=== PATIENT | female | born 1995 | race Caucasian/White ===

== ENCOUNTER → 2017-05-03 | Outpatient (CLI) | payer OTHER ==
[2017-05-07 02:32] LABS: CHLAMYDIA TRACH RNA*** NOT DETECTED (NOT DETECTED); GC (NEIS GONORRHOEAE)RNA** NOT DETECTED (NOT DETECTED)
== END | disposition home or self-care (01) ==
LOC: C.LABSPEC 17:40
PROVIDERS: ATTEND Physician Assistant
DX: R10.2 Pelvic and perineal pain (principal)

== ENCOUNTER → 2017-07-25 | Outpatient (CLI) | payer OTHER | END | disposition home or self-care (01) | LOC: C.LABMFLN 15:31 | PROVIDERS: ATTEND Obstetrics & Gynecology | DX: Z34.90 Encounter for supervision of normal pregnancy, unspecified, unspecified trimester (principal) ==

== ENCOUNTER → 2017-09-11 | Outpatient (CLI) | payer OTHER ==
[2017-09-11 16:03] LABS: URINE APPEARANCE CLOUDY (CLEAR); URINE BILIRUBIN NEG (NEG); URINE COLOR DK YELLOW; URINE EPITHELIAL CELL AUTO >30 /lpf (0-5); URINE NITRITE NEG (NEG); URINE PH 6.5 (4.5-7.5); URINE SPECIFIC GRAVITY 1.022 (1.000-1.030); UROBILINOGEN NEG (NEG)
[2017-09-11 16:04] LABS: MANUAL MICROSCOPIC REQUIRED? NO; REVIEW REQ? NO
== END | disposition home or self-care (01) ==
LOC: C.LABSPEC 15:40
PROVIDERS: ATTEND Obstetrics & Gynecology
DX: Z34.02 Encounter for supervision of normal first pregnancy, second trimester (principal)

== ENCOUNTER → 2017-09-12 | Outpatient (CLI) | payer OTHER ==
[2017-09-12 16:09] LABS: BASO % 0.2 %; BASO ABS # 0.02 K/uL (0-0.2); COMPLETE YES; EOS % 1.1 %; HEMATOCRIT 37.2 % (37-47); IG% 0.6 %; LYMPH % 21.2 %; LYMPH ABS # 1.74 K/uL (1.2-3.4); MEAN CELL VOLUME 92.1 fL (80-100); MEAN CORPUSCULAR HEMOGLOBIN 30.9 pg (25-34); MEAN CORPUSCULAR HGB CONC 33.6 g/dl (32-36); MEAN PLATELET VOLUME 10.2 fL (7.4-10.4); MONO % 7.6 %; NEUT % 69.3 %; PLATELET COUNT 266 K/uL (130-400); RED BLOOD COUNT 4.04 M/uL (4.2-5.4); WHITE BLOOD COUNT 8.21 K/uL (4.8-10.8)
[2017-09-12 17:28] LABS: BENZODIAZEPINE, URINE NEG (NEG); COCAINE,URINE NEG (NEG); PHENCYCLIDINE, URINE NEG (NEG)
[2017-09-12 18:42] LABS: GTGD 50 Grams
[2017-09-16 07:21] LABS: CHLAMYDIA TRACH RNA*** NOT DETECTED (NOT DETECTED); GC (NEIS GONORRHOEAE)RNA** NOT DETECTED (NOT DETECTED)
== END | disposition home or self-care (01) ==
LOC: C.LAB1850 15:18
PROVIDERS: ATTEND Obstetrics & Gynecology
DX: Z34.02 Encounter for supervision of normal first pregnancy, second trimester (principal)

== ENCOUNTER → 2018-02-04 | Outpatient (CLI) | payer OTHER | END | disposition home or self-care (01) | LOC: C.LABSPEC 13:19 | PROVIDERS: ATTEND Obstetrics & Gynecology | DX: Z34.03 Encounter for supervision of normal first pregnancy, third trimester (principal) ==

== ENCOUNTER 2018-02-25 03:48 | Inpatient (IN) | payer OTHER ==
[~2018-02-25] VITALS: Ht 154.9 cm; Wt 63.0 kg
[2018-02-25] MEDS ORDERED: LACTATED RINGER'S 1000ML 1,000 ML IV SCH ×2 (04:06→09:39)
[2018-02-25] MEDS ORDERED: LACTATED RINGER'S 1000ML 1,000 ML IV PRN (04:06)
[2018-02-25] MEDS ORDERED: PRENTAB26 PO (04:22)
[2018-02-25 04:23] VITALS: Ht 154.9 cm; Wt 63.0 kg
[2018-02-25] MEDS ORDERED: BUPIVACAINE 0.25% 30 ML VIAL ONE (04:31)
[2018-02-25] MEDS ORDERED: EpHEDrine SULFATE INJ 50 MG/ML AMP ONE (04:32)
[2018-02-25] MEDS ORDERED: FENTANYL 2MCG/ML ROPIV 1.25MG/ML 100ML BAG ONE (04:32)
[2018-02-25] MEDS ORDERED: FENTANYL CITRATE INJ 50 MCG/1 ML 2 ML VIAL ONE (04:32)
[2018-02-25 04:41] LABS: HEMATOCRIT 37.5 % (37-47); HEMOGLOBIN 13.2 g/dL (12.0-16.0); MEAN CELL VOLUME 90.1 fL (80-100); MEAN CORPUSCULAR HEMOGLOBIN 31.7 pg (25-34); MEAN CORPUSCULAR HGB CONC 35.2 g/dl (32-36); MEAN PLATELET VOLUME 10.5 fL (7.4-10.4); PLATELET COUNT 273 K/uL (130-400); RED CELL DISTRIBUTION WIDTH CV 13.6 % (11.5-14.5); RED CELL DISTRIBUTION WIDTH SD 45.1 fL (36.4-46.3); WHITE BLOOD COUNT 11.03 K/uL (4.8-10.8)
[2018-02-25] MEDS ORDERED: LACTATED RINGER'S 1000ML 500 ML IV PRN (05:47)
[2018-02-25] MEDS ORDERED: NALOXONE HCL INJ 1 MG in SODIUM CHLORIDE 0.9% 1000ML 1,000 ML IV PRN (05:47)
[2018-02-25] MEDS ORDERED: FENTANYL 2MCG/ML ROPIV 1.25MG/ML 100ML BAG EPI PRN (06:00)
[2018-02-25] MEDS ORDERED: DiphenhydrAMINE HCL 50 MG/ML VIAL IV PRN (06:00)
[2018-02-25] MEDS ORDERED: EpHEDrine SULFATE INJ 50 MG/ML AMP IV PRN (06:00)
[2018-02-25] MEDS ORDERED: NALBUPHINE HCL INJ 10 MG/ML AMP IV PRN (06:00)
[2018-02-25] MEDS ORDERED: NALOXONE HCL INJ 0.4 MG/1 ML VIAL/CARP IV PRN (06:00)
[2018-02-25] MEDS ORDERED: OXYTOCIN 30 UNITS/500ML NSS IV ONE (09:29)
[2018-02-25] MEDS ORDERED: OXYCODONE/ACETAMINOPHEN 5-325 TAB PO PRN (09:45)
[2018-02-25] MEDS ORDERED: SUPERCREAM 0.870 % 15GM JAR EXT PRN (09:45)
[2018-02-25] MEDS ORDERED: LANOLIN OINT EXT PRN (09:45)
[2018-02-25] MEDS ORDERED: BENZOCAINE 20% AER SPR 82.5 GM CAN EXT PRN (09:45)
[2018-02-25] MEDS ORDERED: HYDROCORTISONE ACETATE 25 MG SUPP PR PRN (09:45)
[2018-02-25] MEDS ORDERED: ACETAMINOPHEN 325 MG TAB PO PRN (09:45)
[2018-02-25] MEDS ORDERED: OXYTOCIN 30 UNITS/500ML NSS IV PRN (09:45)
[2018-02-25] MEDS ORDERED: IBUPROFEN 600 MG TAB PO PRN (09:45)
--- NOTE | 2018-02-25 10:23 | DELIVERY SUMMARY ---
DATE OF OPERATION: 02/25/2018 VAGINAL DELIVERY NOTE PREOPERATIVE DIAGNOSES: 1. Mc intrauterine at 39 weeks. 2. Group B strep negative. 3. Normal labor and delivery. POSTOPERATIVE DIAGNOSES: 1. Mc intrauterine at 39 weeks. 2. Group B strep negative. 3. Normal labor and delivery. PROCEDURE: Spontaneous vaginal delivery. SURGEON: Inge Salas MD RECORD PRESSMAN: None. ESTIMATED BLOOD LOSS: 250 mL. FINDINGS: Placenta spontaneous and intact with a 3-vessel cord. COMPLICATIONS: None. DISPOSITION: Stable to labor and delivery. DESCRIPTION OF PROCEDURE: Michelle is a 22-year-old 1, para 0, who presented at 39 weeks gestational age. She was admitted by my partner, Dr. Boyer, and managed for a spontaneous labor. Shortly after I accepted care of the patient on the morning of 02/25/2018, she reached complete dilation. I was notified of this by her nurse and the second stage of labor was then began. She pushed very well and I was soon called to the bed for delivery. She was prepped and draped. The head began to crown and through the next several pushing efforts, Michelle was able to deliver the head in an occiput anterior position. The head restituted with the occiput towards the patient's left and with another final push, she was able to deliver the shoulders with no difficulty, whatsoever. A vigorous male with a short cord was placed on the maternal abdomen while the cord was doubly clamped and cut by a family member of the patient. The infant was noted to have some wet lung sounds as he was making crying attempts, therefore he was taken to the warmer for suction and resuscitation. The placenta delivered spontaneously and was intact with a 3-vessel cord. There were no lacerations at the cervix, vagina, or perineum. The fundus was firm, lochia was minimal, and at the present time, mother and infant are both in good condition having tolerated delivery well. I attest to the content of the Intraoperative Record and any orders documented therein. Any exception s are noted below.
--- NOTE | 2018-02-25 11:04 | Anesthesia Procedure Note ---
Anesthesia Epidural Removal Nt Date & Time February 25, 2018 at 11:04 Vital Signs Pain Intensity: 0.0 Notes Mental Status: alert / awake / arousable, participated in evaluation Nausea / Vomiting: adequately controlled Pain: adequately controlled Airway Patency, RR, SpO2: stable & adequate BP & HR: stable & adequate Hydration State: stable & adequate Neuraxial Anesthesia: was administered Anesthetic Complications: no major complications apparent, pt satisfied with anesthetic care Epidural: removed without complications, with tip intact
[2018-02-25 13:55] VITALS: BP 112/71; PULSE 66; TEMP 37.3; O2SAT 95
[2018-02-25 15:15] VITALS: BP 114/78; PULSE 56; TEMP 36.7; O2SAT 98
[2018-02-25 19:20] VITALS: BP 129/86; PULSE 60; TEMP 36.9; O2SAT 98
[2018-02-25] MEDS: DOCUSATE SODIUM 100 MG CAP PO SCH (19:58)
[2018-02-25 23:50] VITALS: BP 104/63; PULSE 72; TEMP 36.8
[2018-02-26 04:20] VITALS: BP 107/64; PULSE 64; TEMP 36.7
--- NOTE | 2018-02-26 06:12 | Progress Note ---
Subjective February 26, 2018. Subjective conversation w/ patient Ambulation: ambulating normally Voiding: no voiding problems Diet Tolerance: Regular Diet Lochia: Moderate Feeding Type: Breast Feeding (supplementing with formula as her milk has not come in yet) Pain: 1/10 low back pain. Improved w/heating pad Review of Systems Constitutional: No fever, No chills Respiratory: No shortness of breath Cardiac: No chest pain Abdomen: No nausea, No vomiting Objective Vital Signs Date Time Temp Pulse Resp B/P (MAP) Pulse Ox O2 Delivery O2 Flow Rate FiO2 02/26/18 04:20 36.7 64 18 107/64 (78) Room Air 02/25/18 23:50 36.8 72 18 104/63 (77) Room Air 02/25/18 23:50 Room Air 02/25/18 19:20 36.9 60 20 129/86 (100) 98 Room Air 02/25/18 15:15 98 Room Air 02/25/18 15:15 36.7 56 16 114/78 (90) 98 Room Air 02/25/18 13:55 37.3 66 18 112/71 (85) 95 Room Air 02/25/18 13:55 95 Room Air Physical Exam General Appearance: WELL-APPEARING, WD/WN, NO APPARENT DISTRESS Respiratory/Chest: lungs clear, normal breath sounds Cardiovascular: regular rate, rhythm Abdomen: soft Fundus: Firm, Non-Tender, Relation to Umbilicus (1 below) Extremities: no pedal edema, no calf tenderness Laboratory Results Last 24 Hours Test 02/26/18 04:44 Assessment and Plan Post- Day#: 1 Continue Routine Care: 22F s/p NVD day 1 - AB+, Rubella Immune, GBS -ve - pt doing well clinically - Vital signs reviewed and WNL - routine care - encourage ambulation, monitor pain - continue to encourage breast feeding Resident Physician Supervision Note: I interviewed and examined the patient. Discussed with Dr. Girard and agree with findings and plan as documented in the note. Any exceptions or clarifications are listed here: [None] Documented By: Inge Salas Resident Tracking Resident Involvement: Resident Care Provided Care Provided: OB Delivery
--- NOTE | 2018-02-26 06:16 | Discharge Instructions ---
Discharge Instructions Date of Service February 26, 2018. Admission Reason for Admission: LABOR Discharge Discharge Diagnosis / Problem: Vaginal Delivery Discharge Goals Goal(s): Routine recovery after delivery Medications Continue Dispensed Medications: supercream, dermaplast, tucks, lansinoh Activity Recommendations Activity Limitations: per Instructions/Follow-up section . Instructions / Follow-Up Instructions / Follow-Up ACTIVITY RECOMMENDATIONS: * Gradual return to full activity over the next 2-3 weeks. * No lifting - nothing heavier than baby over the next 2-3 weeks. * Do not engage in vigorous exercise, sexual activity or sports until cleared by your physician. * Do not drive or operate any motorized equipment until cleared by your physician. * You may shower/bathe daily. MEDICATIONS: For discomfort or pain, you may use Acetaminophen (Tylenol), Ibuprofen (Advil), or Naproxen (Aleve) following the package directions. For constipation you may use Colace following the package directions. BREAST CARE: If you are not breast feeding: * Wear a supportive bra 24 hours a day for one to two weeks. * Avoid stimulating your breasts and nipples as much as possible during the first few weeks after delivery. * When taking a shower, have the warm water hit your back, not breasts. * When your breasts feel full, apply ice packs. Usually three to four times a day helps ease the discomfort. * Take a mild pain medication (Tylenol / Motrin) when you are uncomfortable. If breast feeding: * Use breast milk to lubricate nipples. Lansinoh cream may be used for sore nipples. You do not need to remove cream prior to breast feeding. If using a different brand of cream, check the label for directions regarding removal of cream prior to nursing. * Wear a supportive bra. * If having problems with breasts or breast feeding, call a [facility] consultant or your health care provider. EPISIOTOMY CARE: After delivery, if you have an episiotomy (stitches), the following steps will ease discomfort and aid healing. * For the first 24 hours after delivery, place ice packs next to your episiotomy to help reduce swelling. * After the first 24 hour-period, sitz baths, either portable or in the tub, are suggested. A shower with a shower arm sprayed over the episiotomy may be comforting. * Andria care should be done after each voiding and bowel movement. Squirt warm water from a plastic bottle over the perineum (region of the body between the anus and urinary opening) and pat dry. * Use Dermoplast to ease discomfort. Shake container. [place] directly over the episiotomy. Place a Tucks on a clean sanitary pad next to your episiotomy. SPECIAL CARE INSTRUCTIONS: When you are discharged from the hospital, it is important for you to follow the instructions listed below: * During the first week at home, you should be able to care for yourself and your baby. In addition, the usual light household activities are encouraged. * Limit your activities to the way you feel. Do not try to clean the house or move furniture. Be sensible. * If you actively engage in sports and have done so up until the time of your delivery, you may resume these activities as soon as you feel able. This may take up to one month or even longer. Use good judgment. * Continue to take your vitamins for at least six weeks after the of your baby. * Your diet need not be limited unless you were on a special diet before your delivery. Breast-feeding mothers need around 2500 calories per day and at least 64-80 ounces of fluid per day (8 to 10 glasses). * You should eat foods from the four major food groups. Crash diets or fad diets are to be avoided. Eating lean meats, fresh fruits and vegetables, low-fat dairy products, high fiber foods and a regular exercise program, will help you get back to your pre- weight without putting your health at risk. * Constipation is sometimes a problem after delivery. Take a mild laxative as needed. If breast feeding, Milk of Magnesia is acceptable to use. You may use a suppository or Fleets enema if no episiotomy. * A daily shower or tub bath is suggested. Be sure to thoroughly and gently dry the perineum. * A bloody vaginal discharge will usually continue until around four weeks post . A small amount of bleeding may continue for as long as six weeks. Vaginal discharge changes from the bright red bleeding after delivery to pink then brownish and finally yellowish-pink before becoming white and disappearing. * Bleeding may increase with activity. Your first period may come in 4-8 weeks. If you are breast feeding, your period may be delayed even longer. * [place] (sex) can begin whenever both you and your partner feel comfortable and do not have any form of genital infection. It is recommended that you wait at least six weeks for internal and external healing to occur. If you have questions, please talk to your health care practitioner. A condom should be used to prevent infection and . * Foreplay, gentle intercourse and lubrication is very important the first several times to prevent pain. A water-based lubricant such as K-Y jelly or Astroglide may be used. * If you have RH negative blood and your baby is RH positive, you will receive RHOGAM by injection prior to discharge. The nurse will give you a card to keep with you that has the date and place that you received RHOGAM after delivery. * During your care, you had a Rubella screen done to check for the presence of rubella antibodies in your blood. If your test was negative, you will receive a Rubella vaccine prior to discharge. This vaccine may cause a fever, soreness at the injection site and flu-like symptoms. If these symptoms persist, notify your health care practitioner. is not advised for one month after a Rubella vaccine. * Verbalizes understanding of car seat law as reviewed with patient nursing. * Car Seat hand-out given and reviewed with patient by nursing. * Shaken baby information reviewed with patient by nursing. Call you doctor if: * Heavy bleeding (saturating several pads an hour) or passing clots the size of your fist. * A fever >101 degrees F (38.3 degrees C) on two occasions four hours apart and /or chills. * Unusual pain in the pelvic or vaginal areas. * "Baby Blues" lasting longer than two weeks. If you have any questions or concerns, call your health care practitioner at . FOLLOW UP VISIT: * Please call the office at to schedule a 6 week examination. It is important you keep this appointment. It is important for you to make arrangements for either yearly or twice yearly check-ups thereafter. Current Hospital Diet Patient's current hospital diet: Regular OB Diet Discharge Diet Recommended Diet: Regular Diet Pending Studies Studies pending at discharge: no Medical Emergencies . Who to Call and When: Medical Emergencies: If at any time you feel your situation is an emergency, please call [phone] immediately. . Non-Emergent Contact Non-Emergency issues call your: Primary Care Provider . . "Provider Documentation" section prepared by Maggie Vuong. .
[2018-02-26 06:28] LABS: HEMATOCRIT 36.4 % (37-47); HEMOGLOBIN 12.4 g/dL (12.0-16.0)
[2018-02-26 07:04] VITALS: BP 107/70; PULSE 52; TEMP 36.7
[2018-02-26] MEDS: PRENATAL VITAMIN TAB PO SCH (08:28)
[2018-02-26] MEDS: DOCUSATE SODIUM 100 MG CAP PO SCH ×2 (08:28→19:48)
[2018-02-26 11:15] VITALS: BP 95/57; PULSE 57; TEMP 36.4; O2SAT 98
[2018-02-26 15:40] VITALS: BP 103/69; PULSE 59; TEMP 36.6; O2SAT 97
[2018-02-27 00:25] VITALS: BP 107/59; PULSE 48; TEMP 36.8
--- NOTE | 2018-02-27 06:38 | Progress Note ---
Subjective February 27, 2018. Subjective conversation w/ patient Ambulation: ambulating normally Voiding: no voiding problems Diet Tolerance: Regular Diet Lochia: Small Feeding Type: Breast Feeding (pumping and feeding in a bottle) Pain: 1/10 low back pain w/certain positions Review of Systems Constitutional: No fever, No chills Respiratory: No shortness of breath Cardiac: No chest pain Abdomen: No nausea, No vomiting Objective Vital Signs Date Time Temp Pulse Resp B/P (MAP) Pulse Ox O2 Delivery O2 Flow Rate FiO2 02/27/18 00:25 Room Air 02/27/18 00:25 36.8 48 16 107/59 (75) Room Air 02/26/18 15:40 36.6 59 16 103/69 (80) 97 Room Air 02/26/18 15:40 97 Room Air 02/26/18 11:15 36.4 57 18 95/57 (70) 98 Room Air 02/26/18 08:15 Room Air 02/26/18 07:04 36.7 52 19 107/70 (82) Physical Exam General Appearance: WELL-APPEARING, WD/WN, NO APPARENT DISTRESS Respiratory/Chest: lungs clear, normal breath sounds Cardiovascular: regular rate, rhythm Abdomen: soft Fundus: Firm, Non-Tender, Relation to Umbilicus (2 below) Extremities: no pedal edema, no calf tenderness Assessment and Plan Post- Day#: 2 Continue Routine Care: 22F s/p NVD day 2 - AB+, Rubella Immune, GBS -ve - pt doing well clinically - routine care - encourage ambulation, monitor pain - pt ready for d/c today and will be counselled on d/c instructions Resident Physician Supervision Note: I was present with Dr. Vuong during the history and exam. I discussed the case with the resident and agree with the findings and plan as documented in the note. Any exceptions or clarifications are listed here: PPD2 doing well. Discharge to home. Documented By: Ambar Soriano Resident Tracking Resident Involvement: Resident Care Provided Care Provided: OB Delivery
[2018-02-27 07:30] VITALS: BP 113/65; PULSE 73; TEMP 36.7
[2018-02-27] MEDS ORDERED: MISC-836 (07:30)
[2018-02-27] MEDS: DOCUSATE SODIUM 100 MG CAP PO SCH (08:50)
[2018-02-27] MEDS: PRENATAL VITAMIN TAB PO SCH (08:51)
[2018-02-27 11:00] VITALS: BP_DIAS 65; PULSE 73; TEMP 36.7
== END 2018-02-27 11:00 | disposition home or self-care (01) | DRG 775 ==
LOC: C.OPB 03:48 → C.LD 03:48 → C.OPB 04:08 → C.LD 04:08 → C.OBG 13:10
PROVIDERS: ADMIT Obstetrics & Gynecology; ATTEND Obstetrics & Gynecology
PROC: 10E0XZZ Delivery of Products of Conception, External Approach (ICD-10-PCS; principal; 2018-02-25)
DX: O69.3XX0 Labor and delivery complicated by short cord, not applicable or unspecified (principal); O76 Abnormality in fetal heart rate and rhythm complicating labor and delivery; Z3A.39 39 weeks gestation of pregnancy; Z37.0 Single live birth

== ENCOUNTER 2022-12-03 07:50 | Inpatient (IN) ==
[2022-12-03] MEDS ORDERED: LIDOCAINE 1% LOCAL 20 ML VIAL INFIL PRN (08:11)
[2022-12-03] MEDS ORDERED: OXYTOCIN 30 UNITS/500 ML BAG IV PRN ×3 (08:11→16:57)
[2022-12-03] MEDS ORDERED: LACTATED RINGER'S 1,000 ML IV PRN (08:11)
--- NOTE | 2022-12-03 08:30 | History & Physical Report ---
Date of Service December 03, 2022 Assessment & Plan (1) Encounter for induction of labor: Plan - Patient admitted to labor and delivery for initiation of medical induction of labor - No Turner bulb placed, ЮЛИЯ /-2 on 11/29/22 - No evidence of contractions, thus oxytocin augmentation of labor will be started per protocol - Once contractions are progressing, will consider ROM - Will anticipate epidural as contractions arise - Labs pending - Nephrostomy tube intact on right, no erythema or purulence, removal schedule 12/13/22 Admission and Anticipated Discharge Date Admission Date: December 03, 2022 History of Present Illness Chief Complaint: Induction of Labor Primary Care Provider: NO PCP Subjective: Amita is a 26 year old female currently 39 5/7 with ANGEL 12/07/22 determined by LMP who presents to L&D for induction of labor. Complications: nephrolithiasis w/ nephrostomy placement, hx of scoliosis Reason for Induction/: Elective (planned prior to nephrostomy removal 12/13/22) Movement: Yes Fluid Loss/ROM: No Bloody show/discharge: Small bloody show with mucous discharge External FHT and uterine monitor: Category 1, tracing reactive, good FHT variability (accelerations w/o decelerations) Last OB appointment: 11/29, regular care [facility] Hx: No abnormal paps, no hx of STIs Social Hx: Current daily cigarette use, 1 PPD Labs: Blood Type: AB+ Antibody Screen: Negative Hg/Hct (today): Pending WBC/Plt (today): Pending Rubella: Immune RPR: Non-reactive Gonorrhea: Negative Chlamydia: Negative HIV: Negative HbSAg: Negative GBS: Negative Cff-DNA: Low risk CF-SMA: Low risk ROS: - Denies fever, chills, sweats - Denies dyspnea or pleuritic pain - Denies chest pain, palpitations, or pressure - Denies breast pain - Denies dysuria - Denies headache or visual changes Allergies Allergy/AdvReac Type Severity Reaction Status Date / Time No Known Allergies Allergy Verified 11/29/22 12:18 Home Medications Medication Instructions Recorded Confirmed Type prenat.vits,ankit,peo-ynce-ydsbr 1 tab PO DAILY 04/24/22 12/03/22 History breast pump #1 ea 11/23/22 11/29/22 Rx Patient History Medical History (Updated 12/03/22 @ 08:27 by Eduardo Morales DO) History of ovarian cyst History of varicella vaccination Kidney stones Nephrostomy tube placed 09/2022. Surgical History No pertinent past surgical history Family History Grandmother (Paternal) Breast cancer Other Colorectal cancer Social History (Updated 12/03/22 @ 08:19 by Marilyn Reis, MAURO) Smoking Status: Current every day smoker Tobacco Type: Cigarettes packs per day: 1; Cigarettes Per Day: 20; Hx Alcohol Use: No Hx Substance Use: No Preferred Language: Thai Communication Ability: Effective Licensed Loan Officer Assistant Required: No Beliefs That Will Affect Care: None marital status: marital status details: Adonis Watson (29) [phone] Current Living Situation: Spouse and Family Current Living Situation Comment: lives with spouse, and son, cats, dogs, spouse to change litter. current occupational status: employed current occupation: [employer] Other Information That Helps Us Care for You: No Feels Safe at Home: Yes Safety Concerns: Feels Safe At This Time Dental Care, Regularly: Yes Assistive Devices: None Physical Exam Physical Exam: General: Alert, oriented. No acute distress. Cardiac: Regular rate and rhythm, no murmurs/rubs/gallops. Respiratory: Clear to auscultation bilaterally a/p, no wheezes/rales/rhonchi. No increased work of breathing. Symmetrical chest rise. No respiratory distress. Abdomen: Gravid; reactive FHTs; Position: Vertex by Damien Back: Nephrostomy tube in place, no erythema or purulence at site Pelvic: ЮЛИЯ pending per Dr. Caballero Lower Extremities: No lower extremity edema or swelling. No deep calf pain. Catalina's negative bilaterally. Results & Data ([facility]) Vital Signs (Past 12 Hours) Vital Signs Pulse BP 12/03/22 08:13 74 104/58 L Code Status & VTE Plan VTE Prophylaxis Plan VTE Prophylaxis will be ordered: Yes Supervising Physician Co-Signing Physician Notes Resident Physician Supervision Note: I interviewed and examined the patient. Discussed with Dr. Morales and agree with findings and plan as documented in the note. Any exceptions or clarifications are listed here: 26 yo at 39 3/7 wga presents for eIOL. +FM; denies ctx, LOF, VB. VSS, Fetus cat 1. SVE /-2. Will start pit, epidural PRN, GBS neg Documented By: Rosi Caballero MD Resident Activity Tracking Resident Involvement: Resident Care Provided Care Provided: OB Delivery
[2022-12-03 08:49] LABS: Hematocrit (blood only) 31.6 % (37.0-47.0); Mean Corpuscular Hemoglobin 30.8 pg (25.0-34.0); Mean Corpuscular Hgb Conc 34.8 g/dL (32.0-36.0); Mean Corpuscular Volume 88.5 fL (80.0-100.0); Mean Platelet Volume 11.1 fL (9.4-12.4); Platelet Count 282 K/uL (130-400); RDW Coefficient of Variation 13.9 % (11.5-14.5); RDW Standard Deviation 44.9 fL (36.4-46.3); Red Blood Count 3.57 M/uL (4.20-5.40); White Blood Count 8.86 K/ul (4.8-10.8)
[2022-12-03] MEDS ORDERED: SODIUM CHLORIDE 0.9% INJ 10 ML VIAL ONE (15:06)
[2022-12-03] MEDS ORDERED: fentaNYL citrate 100 MCG/2 ML VIAL ONE (15:06)
[2022-12-03] MEDS ORDERED: ePHEDrine sulfate 50 MG/ML AMP ONE (15:06)
[2022-12-03] MEDS ORDERED: BUPIVACAINE 0.25% 30 ML VIAL ONE (15:06)
[2022-12-03] MEDS ORDERED: LIDOCAINE 2%/EPINEPHRINE 1:200,000 20 ML SDV ONE (15:07)
[2022-12-03] MEDS ORDERED: fentaNYL 2MCG/ML ROPIVACAINE 1.25MG/ML 100 ML BAG EPI ONE (15:07)
--- NOTE | 2022-12-03 15:08 | Labor Progress Brief Note ---
Date of Service December 03, 2022 Subjective pain w/ ctx about 5/10 Assessment & Plan (1) Encounter for induction of labor: Plan: 26 yo at 39/ 37 wga admitted for eIOL VSS Fetus cat 1 Labor - pit at 8, now s/p arom GBS neg desires epidural Admission and Anticipated Discharge Date Admission Date: December 03, 2022 Physical Exam Genitourinary: Manual OB Exam: + cervical dilation 4 cm, + cervical effacement 90%, + station -2 and + amniotic fluid (clear) OB Exam Monitor Tracing: + external FHT monitor used, + external uterine monitor used (q3) and + category I (125-130/mod/+accel/-decel) Results & Data ([facility]) Vital Signs (Past 12 Hours) Vital Signs Temp Pulse Resp BP Pulse Ox 12/03/22 08:21 97.7 F 20 12/03/22 15:04 72 100 12/03/22 14:34 75 20 107/68 12/03/22 13:38 75 18 95/62 L 12/03/22 12:30 66 18 96/58 L 12/03/22 11:33 97.5 F L 64 18 96/63 L 12/03/22 10:40 74 18 104/56 L 12/03/22 09:45 66 20 103/62 12/03/22 08:13 74 104/58 L Coding Level of Care Code None Diagnoses Encounter for induction of labor Z34.90
--- NOTE | 2022-12-03 15:39 | Anesthesiology Consultation ---
Date of Service December 03, 2022 Assessment & Plan Chart Review Chart Review: Acceptable Risk for Labor Epidural ASA ASA2 Proposed Anesthesia Anesthesia Type: Labor Epidural History Height/Weight Height: 5 ft Weight: 61.689 kg Allergies Allergy/AdvReac Type Severity Reaction Status Date / Time No Known Allergies Allergy Verified 11/29/22 12:18 Medications Home Medications Medication Instructions Recorded Confirmed Last Taken prenat.vits,ankit,ykb-fxoz-lezju 1 tab PO DAILY 04/24/22 12/03/22 11/27/22 breast pump #1 ea 11/23/22 11/29/22 Unknown Active Medications Generic Name Dose Route Start Last Admin Trade Name Freq PRN Reason Stop Dose Admin Lactated Ringer's 1,000 mls @ 125 mls/hr 12/03/22 08:11 12/03/22 09:42 Lr IV 12/05/22 08:10 125 mls/hr .Q8H PRN Administration L&D Protocol Protocol Oxytocin 30 units in 500 mls @ 8 mls/hr 12/03/22 08:11 12/03/22 14:50 Pitocin IV 12/05/22 08:10 0.48 units/hr .Q24H PRN 8 mls/hr Labor Induction/Augmentation Titration Protocol 0.48 UNITS/HR NPO Date Last Intake of Fluids: 12/03/22 Time Last Intake of Fluids: 15:00 Date Last Intake of Solids: 12/03/22 Time Last Intake of Solids: 06:00 Past Medical History Medical History (Updated 12/03/22 @ 11:28 by Marilyn Reis, MAURO) Anemia History of ovarian cyst History of varicella vaccination Kidney stones Nephrostomy tube placed 09/2022 - Remains intact. Surgery scheduled for removal on 12/13/2022. Scoliosis Exercise / Class Metabolic Activity 1 > 8 Run/Swim/Ski/Tennis Past Family History Family History Grandmother (Paternal) Breast cancer Other Colorectal cancer Past Surgical History Surgical History No pertinent past surgical history Past Anesthesia History No Hx of Anesthesia Complications History of PONV No Hx of PONV Social History Smoking Status: Current every day smoker tobacco type: cigarettes Smoking cigarettes per day: 20 Hx Alcohol Use: No Hx Substance Use: No Physical Exam Vital Signs Last Vital Signs Temp 36.4 C L 12/03/22 11:33 Pulse 70 12/03/22 15:32 Resp 20 12/03/22 14:34 BP 110/56 L 12/03/22 15:32 Pulse Ox 100 12/03/22 15:29 Constitutional screaming in pain ENMT Thyromental Distance: > or= 3.5 Finger Breadths Mallampati Class: I Neck normal visual inspection Respiratory Auscultation: lungs clear to auscultation bilaterally Cardiovascular Rate/Rhythm: regular rate and regular rhythm Psychiatric Orientation: alert and oriented x 3 Testing Laboratory Results 12/03/22 08:27
[2022-12-03] MEDS ORDERED: diphenhydrAMINE 50 MG/ML VIAL IV PRN (15:40)
[2022-12-03] MEDS ORDERED: ONDANSETRON INJ 2 MG/ML 2 ML VIAL IV PRN (15:40)
[2022-12-03] MEDS ORDERED: NALOXONE HCL 0.4 MG/1 ML VIAL/CARP IV PRN (15:40)
[2022-12-03] MEDS ORDERED: NALBUPHINE HCL INJ 10 MG/ML AMP IV PRN (15:40)
[2022-12-03] MEDS ORDERED: PROMETHAZINE HCL 25 MG in SODIUM CHLORIDE 0.9% 50 ML IV PRN (15:40)
[2022-12-03] MEDS ORDERED: ePHEDrine sulfate 50 MG/ML AMP IV PRN (15:40)
[2022-12-03] MEDS ORDERED: NALOXONE HCL 1 MG in SODIUM CHLORIDE 0.9% 1000ML 1,000 ML IV PRN (15:40)
[2022-12-03] MEDS ORDERED: fentaNYL 2MCG/ML ROPIVACAINE 1.25MG/ML 100 ML BAG EPI PRN (15:40)
--- NOTE | 2022-12-03 16:48 | Delivery Summary ---
Vaginal Delivery Summary Date of Service December 03, 2022 Vaginal Delivery Summary [facility] PREOPERATIVE DIAGNOSIS: 1. Single intrauterine at 39 3/7 wga 2. Elective induction of labor POSTOPERATIVE DIAGNOSIS: 1. Single intrauterine at 39 3/7 wga 2. Elective induction of labor 3. Delivered PROCEDURE: 1. Normal spontaneous vaginal delivery. SURGEON: Rosi Caballero MD ANESTHESIA: Epidural. ESTIMATED BLOOD LOSS: 300 mL FLUIDS: Continuous LR. URINE OUTPUT: None. COMPLICATIONS: None. CONDITION: Stable. INDICATIONS: 26 yo at 39 3/7 wga presented for elective IOL today due to coordination of care as she is having nephrostomy tube surgery next week. She was 3cm on arrival and started on pitocin. She underwent AROM and received an epidural for pain control. She rapidly progressed to complete and desired to push. FINDINGS: A viable female infant, weight pending with Apgars of 8 and 9 at 1 and 5 minutes respectively. SPECIMEN: Cord blood OPERATIVE REPORT: The patient progressed to 10 cm, 100% effaced and +2 station, pushed over intact perineum with anesthesia to deliver a viable female , weight and Apgars as above. Head of delivered in AGUSTÍN position. No nuchal cord was present. Body and shoulders were delivered without difficulty. was delivered to maternal abdomen and nursing staff. Delayed cord clamping was performed for 60 seconds. Cord was clamped and cut. Cord blood was obtained. Placenta delivered spontaneously intact with 3-vessel cord. IV oxytocin and fundal massage were given for excellent hemostasis. Vagina, cervix, perineum, and placenta were inspected. Hemostatic labial abrasions were noted bilaterally and not needed to be repaired. Sponge and needle counts correct x2. No sponges were left behind. Mother and stable in immediate period. [facility] [place] Vaginal Delivery Charge Vaginal Delivery Codes: 86474 global code for the antepartum, delivery, and post- Delivery Type Details: [facility]
[2022-12-03] MEDS ORDERED: bisacodyL 10 MG SUPP PR PRN (16:57)
[2022-12-03] MEDS ORDERED: DIPHTHERIA/TETANUS/PERTUSSIS 0.5mL SYR/VIAL (Age 7+yrs) IM ONE (16:57)
[2022-12-03] MEDS ORDERED: BENZOCAINE 20% AER SPR 82.5 GM CAN EXT PRN (16:57)
[2022-12-03] MEDS ORDERED: HYDROCORTISONE ACETATE 25 MG SUPP PR PRN (16:57)
[2022-12-03] MEDS ORDERED: IBUPROFEN 600 MG TAB PO PRN (16:57)
[2022-12-03] MEDS ORDERED: ACETAMINOPHEN 325 MG TAB PO PRN (16:57)
--- NOTE | 2022-12-03 17:09 | Anesthesia Procedure Note ---
Date of Service December 03, 2022 Anesthesia Post Epidural Note Vital Signs Vital Signs: Temp Pulse Resp BP Pulse Ox 36.4 C L 54 L 20 95/56 L 99 12/03/22 11:33 12/03/22 17:00 12/03/22 14:34 12/03/22 17:00 12/03/22 16:45 Notes Mental Status: alert / awake / arousable and participated in evaluation Nausea / Vomiting: adequately controlled Pain: adequately controlled Airway Patency, RR, SpO2: stable & adequate BP & HR: stable & adequate Hydration State: stable & adequate Neuraxial Anesthesia: was administered and sensory block is resolving Anesthetic Complications: no major complications apparent and Pt Satisfied with anesthetic care Epidural: Removed without complications and With tip intact
[2022-12-03] MEDS: DOCUSATE SODIUM 100 MG CAP PO SCH (21:25)
--- NOTE | 2022-12-04 04:58 | Obstetrical Progress Note ---
Date of Service December 04, 2022 Assessment & Plan (1) care following vaginal delivery: (2) Kidney stones: Plan - Overall, feeling well and eating well today - feeding going well without concern - Urinating and passing gas appropriately - Ambulating well in room - Pain controlled w/o medication - Hgb 11.0 on 12/03 - Vitals stable, BP 90s/60s w/ P 53 - Nephrostomy tube intact - Routine PP care progressing well - Anticipate discharge @ 24-48hours PP - Recommending f/u outpatient in 6 weeks Admission and Anticipated Discharge Date Admission Date: December 03, 2022 Supervising Physician Co-Signing Physician Notes Resident Physician Supervision Note: I interviewed and examined the patient. Discussed with Dr. Morales and agree with findings and plan as documented in the note. Any exceptions or clarifications are listed here: PP1 s/p , doing well. VSS, exam benign and wnl. Desires d/c home today, ok to do so. Still desires tubal so will send message to arrange Documented By: Rosi Caballero MD Subjective Patient is a 26F who is PPD #1 following delivery at 39 5/7. She reports feeling well overall this morning. - Ambulation - well throughout room - Voiding/Turner - independent voids, no dysuria or pressure, nephrostomy tube intact - Gas/Stool - passing gas, no bowel movement - Diet - regular, no nausea or emesis - Lochia - diminishing, light amount - Infant Feeding Type - bottle/formula feeding - Pain Level - 1/10, controlled with Ibuprofen Review of Systems - Denies fever, chills, sweats - Denies shortness of breath, difficulty breathing, chest pain, palpitations, chest pressure. - Denies breast pain. - Denies dysuria. - Denies headache or changes in vision. Physical Exam Physical Exam: General: Alert, oriented. No acute distress. Cardiac: RRR, normal S1/S2, no murmurs/rubs/gallops. Respiratory: Non-labored, CTAB, no wheezes/rales/rhonchi. Symmetric chest rise. Abdomen: Soft, nontender, nondistended. Bowel sounds present. Uterus: Uterine fundus firm, palpable 2 cm below umbilicus. Lower Extremities: No lower extremity edema or swelling. No deep calf pain. Catalina's negative bilaterally. Results & Data ([facility]) Vital Signs (Past 12 Hours) Vital Signs Temp Pulse Pulse Resp BP BP BP 12/04/22 03:02 36.7 C 53 L 18 96/62 L 12/03/22 23:20 36.9 C 64 18 96/62 L 12/03/22 20:00 36.6 C 69 18 104/62 12/03/22 19:45 37.1 C 18 94/61 L 12/03/22 19:20 75 94/61 L 12/03/22 18:30 77 96/56 L 12/03/22 18:15 59 L 98/59 L 12/03/22 17:59 79 106/69 12/03/22 17:45 51 L 104/68 12/03/22 17:30 71 100/63 12/03/22 17:15 68 104/65 12/03/22 17:00 54 L 95/56 L Pulse Ox O2 Del Method 12/04/22 03:02 99 Room Air 12/03/22 23:20 99 Room Air 12/03/22 20:00 99 Room Air 12/03/22 19:45 Room Air 12/03/22 19:20 12/03/22 18:30 12/03/22 18:15 12/03/22 17:59 12/03/22 17:45 12/03/22 17:30 12/03/22 17:15 12/03/22 17:00 Resident Activity Tracking Resident Involvement: Resident Care Provided Care Provided: OB Delivery
[2022-12-04] MEDS ORDERED: FERROUS SULFATE 325 MG TAB PO SCH (08:00)
[2022-12-04] MEDS ORDERED: PRENATAL VITAMIN 1 TAB PO SCH (08:00)
[2022-12-04] MEDS: DOCUSATE SODIUM 100 MG CAP PO SCH (08:21)
[2022-12-04] MEDS ORDERED: bisacodyL 5 MG TABEC PO SCH (20:00)
== END 2022-12-04 17:50 | disposition home or self-care (01) | DRG 807 ==
LOC: 4S1 07:50 → 4E2 20:00